=== PATIENT | male | born 1990 | race African-American/Black ===

== ENCOUNTER 2016-11-06 13:30 | Emergency (ER) | payer SELFPAY ==
--- NOTE | 2016-11-06 14:45 | ER Document Report ---
ED Neck/Back Problem - General Chief Complaint: Low Back Pain Stated Complaint: BACK PAIN Time seen by provider: 14:37 Mode of Arrival: Ambulatory Information source: Patient Notes: 26-year-old male presented to ED for pain in his lower back and abdomen after carrying boxes at work. He said someone hit one of the boxes and he bit over and then back up and started with severe pain in his back and down one leg. TRAVEL OUTSIDE OF THE [place] IN LAST 30 DAYS: No - HPI Patient complains to provider of: Lower back Onset: Yesterday Where: Work Onset: Sudden Timing: Still present Quality of pain: Sharp Severity: Moderate Pain Level: 4 Context: Lifting, Turning Recent injury: Possibly Associated symptoms: Radiation to leg, Lower back pain. denies: Constipation, Incontinence, Motor loss, Numbness/tingling, Unable to urinate Exacerbated by: Movement of trunk Relieved by: Nothing Similar symptoms previously: Yes Recently seen / treated by doctor: No - Related Data Allergies/Adverse Reactions: codeine [Codeine] Allergy (Mild, Verified 11/06/16 13:42) oxycodone HCl [From Percocet] Allergy (Mild, Verified 11/06/16 13:42) acetaminophen [From Vicodin] Allergy (Verified 11/06/16 13:42) hydrocodone bitartrate [From Vicodin] Allergy (Verified 11/06/16 13:42) morphine [Morphine] Allergy (Verified 11/06/16 13:42) Past Medical History - General Information source: Patient - Social History Smoking Status: Former Smoker Cigarette use (# per day): No Chew tobacco use (# tins/day): No Smoking Education Provided: No Lives with: Family Family History: Reviewed & Not Pertinent Patient has suicidal ideation: No Patient has homicidal ideation: No - Past Medical History Cardiac Medical History: Reports: None Pulmonary Medical History: Reports: Hx Asthma EENT Medical History: Reports: None Neurological Medical History: Reports: None Endocrine Medical History: Reports: None Renal/ Medical History: Reports: None Malignancy Medical History: Reports None Musculoskeltal Medical History: Reports Hx Musculoskeletal Trauma Skin Medical History: Reports None Psychiatric Medical History: Reports: None Traumatic Medical History: Reports: None Infectious Medical History: Reports: None Surgical Hx: Negative Past Surgical History: Reports: None - Immunizations Hx Diphtheria, Pertussis, Tetanus Vaccination: No - unknown Review of Systems - Review of Systems Constitutional: No symptoms reported EENT: No symptoms reported Cardiovascular: No symptoms reported Respiratory: No symptoms reported Gastrointestinal: No symptoms reported Genitourinary: No symptoms reported Male Genitourinary: No symptoms reported Musculoskeletal: Back pain - Lower back pain radiating down her left leg Skin: No symptoms reported Hematologic/Lymphatic: No symptoms reported Neurological/Psychological: No symptoms reported Physical Exam - Vital signs Vitals: Temp Pulse Resp BP Pulse Ox 98.3 F 84 18 139/85 H 99 11/06/16 13:43 11/06/16 13:43 11/06/16 13:43 11/06/16 13:43 11/06/16 13:43 Interpretation: Normal - General General appearance: Appears well, Alert - HEENT Head: Normocephalic, Atraumatic Eyes: Normal Pupils: PERRL - Respiratory Respiratory status: No respiratory distress Chest status: Nontender Breath sounds: Normal Chest palpation: Normal - Cardiovascular Rhythm: Regular Heart sounds: Normal auscultation Murmur: No - Abdominal Inspection: Normal Distension: No distension Bowel sounds: Normal Tenderness: Nontender Organomegaly: No organomegaly - Back Back: Normal, Tender - Lumbar area with sciatica. No: Deformity/step-off, CVA tenderness, Vertebra tenderness, Scars, Scoliosis, Wounds, Other - Extremities General upper extremity: Normal inspection, Nontender, Normal color, Normal ROM , Normal temperature General lower extremity: Normal inspection, Nontender, Normal color, Normal ROM , Normal temperature, Normal weight bearing. No: Deirdre's sign - Neurological Neuro grossly intact: Yes Cognition: Normal Orientation: AAOx4 Carson Coma Scale Eye Opening: Spontaneous Travis Coma Scale Verbal: Oriented Carson Coma Scale Motor: Obeys Commands Travis Coma Scale Total: 15 Speech: Normal Motor strength normal: LUE, RUE, LLE, RLE Sensory: Normal - Psychological Associated symptoms: Normal affect, Normal mood - Skin Skin Temperature: Warm Skin Moisture: Dry Skin Color: Normal Course - Vital Signs Vital signs: Temp Pulse Resp BP Pulse Ox 98.3 F 84 18 139/85 H 99 11/06/16 13:43 11/06/16 13:43 11/06/16 13:43 11/06/16 13:43 11/06/16 13:43 Discharge - Discharge Clinical Impression: Low back pain Qualifiers: Chronicity: acute Back pain laterality: bilateral Sciatica presence: with sciatica Sciatica laterality: sciatica of left side Qualified Code(s): M54.42 - Lumbago with sciatica, left side Condition: Stable Disposition: HOME, SELF-CARE Instructions: Stretching Exercises for the Back ([facility]), Exercise Program for the Shoulder ([facility]), Range of Motion Exercises ([facility]) Additional Instructions: LOW BACK PAIN: Three out of every four people will have an episode of disabling back pain during their lifetime. Most commonly the pain is due to straining of the muscles and ligaments in the low back. Usual treatment includes: (1) Rest on a firm surface. Avoid lying on your stomach. (2) Ice pack the painful area. After a few days, gentle heat may be used intermittently to relax the area, or ice packs can be continued. (3) Medication may be needed -- muscle relaxers and antiinflammatory medicines are commonly used. (4) As the back improves, exercises are prescribed to strengthen the back and abdominal muscles. Your doctor will advise you on the proper care for your back at each stage in your recovery. You may be better in a few days -- or healing may take several weeks. If new symptoms of a "herniated disc" (radiation of pain, numbness, or tingling down the back of the leg or weakness in the leg) occur, you should be re-examined. Further testing may be necessary. Anti-Inflammatory Medication You have received a prescription for an antiinflammatory agent. This is an excellent, safe drug for pain control. In addition, it has potent antiinflammatory effects which are beneficial, especially in the treatment of injuries, arthritis, or tendonitis. It's best to take this medicine with food. Persons with ulcer disease or allergy to aspirin should notify their physician of this before taking this drug. Take the medication exactly as prescribed. Don't take additional doses unless instructed to do so by your doctor. If you develop wheezing, shortness of breath, hives, faintness, stomach pain, vomiting, or dark black stools, return for re-evaluation at once. MUSCLE RELAXERS: Muscle relaxing medications are usually prescribed for acute muscle spasm or injury to the neck and back. They are often combined with antiinflammatory pain medication for increased relief. You may stop the muscle relaxer when the pain and stiffness have improved. Start the medication again if spasms recur. Muscle relaxers may cause drowsiness, especially with the first dose. Do not operate machinery or drive while under the effects of the medication. Most muscle relaxers last up to 24 hours. Do not combine the medication with alcohol. ICE PACKS: Apply ice packs frequently against the painful area. Many different schedules are recommended, such as "20 minutes on, 20 minutes off" or "one hour ice, two hours rest." If you need to work, you may need to go longer between ice treatments. You should plan to have the area ice packed AT LEAST one fourth of the time. The ice should be applied over the wrap, tape, or splint, or over a layer of cloth -- not directly against the skin. Some ice bags have a built-in cloth and can be put directly on the skin. WARM PACKS: After approximately two days, apply gentle heat (such as a heating pad or hot water bottle) for about 20 to 30 minutes about every two hours -- at least four times daily. Warmth and elevation will help you make a more rapid recovery , and will ease the pain considerably. Do not use HOT heat, and never apply heat for longer than 30 minutes. The continuous heat can invisibly damage skin and muscles -- even when no burn is seen on the surface. Damaged muscles can make you MORE sore. FOLLOW-UP CARE: If you have been referred to a physician for follow-up care, call the physician s office for an appointment as you were instructed or within the next two days. If you experience worsening or a significant change in your symptoms, notify the physician immediately or return to the Emergency Department at any time for re-evaluation. Prescriptions: Cyclobenzaprine HCl [Flexeril 10 mg Tablet] 10 mg PO TIDP PRN #15 tab PRN Reason: Naproxen 500 mg PO BID #20 tablet Forms: Return to Work, Elevated Blood Pressure Referrals: ARTIE CAN MD [ACTIVE STAFF] - Follow up as needed
[2016-11-06 14:48] VITALS: BP 155/78
== END 2016-11-06 15:00 | disposition home or self-care (01) ==
LOC: ER 13:30
DX: M54.42 Lumbago with sciatica, left side (principal); R10.9 Unspecified abdominal pain; X58.XXXA Exposure to other specified factors, initial encounter; Y93.89 Activity, other specified; Y99.0 Civilian activity done for income or pay; J45.909 Unspecified asthma, uncomplicated; Z88.5 Allergy status to narcotic agent; Z87.891 Personal history of nicotine dependence
CPT/HCPCS: 99283

== ENCOUNTER 2017-02-07 20:24 | Emergency (ER) | payer SELFPAY ==
[2017-02-07] MEDS ORDERED: BENZONATATE 100 MG CAPSULE PO ONE (22:53)
[2017-02-07] MEDS ORDERED: DEXAMETHASONE 4 MG TABLET PO ONE (22:53)
[2017-02-07] MEDS ORDERED: ONDANSETRON ODT 4 MG TAB (6 TAB/DSPK) PO PRN (22:53)
[2017-02-07] MEDS ORDERED: ALBUTEROL SULFATE HFA (90 MCG/PUFF) 8 GM MDI (1 MDI/ER DISP) IH PRN (22:54)
--- NOTE | 2017-02-07 22:56 | ER Document Report ---
ED General - General Chief Complaint: Abdominal Pain Stated Complaint: ABDOMINAL PAIN/DIFFICUTLY BREATHING Time Seen by Provider: 02/07/17 22:14 Notes: Patient is a 26-year-old male who presents with multiple complaints. Patient's primary complaint is that he has had persistent cough with intermittent posttussive emesis over the last 2 days. States he has been able to tolerate oral intake in between his episodes of posttussive emesis. His cough is nonproductive. The vomitus was nonbilious, the contents of what he had eaten. He has not tried anything to improve his symptoms. He has not noted that he worsens his symptoms. He has not seen a primary care doctor regarding today's concerns. He also notes a dull, burning epigastric abdominal discomfort after the episodes of vomiting but denies any focal abdominal pain at the time of my assessment. No prior history of abdominal surgeries. TRAVEL OUTSIDE OF THE [place] IN LAST 30 DAYS: No - Related Data Allergies/Adverse Reactions: codeine [Codeine] Allergy (Mild, Verified 02/07/17 21:02) oxycodone HCl [From Percocet] Allergy (Mild, Verified 02/07/17 21:02) acetaminophen [From Vicodin] Allergy (Verified 02/07/17 21:02) hydrocodone bitartrate [From Vicodin] Allergy (Verified 02/07/17 21:02) morphine [Morphine] Allergy (Verified 02/07/17 21:02) Past Medical History - General Information source: Patient - Social History Smoking Status: Never Smoker Frequency of alcohol use: Occasional Drug Abuse: None Family History: Reviewed & Not Pertinent Patient has suicidal ideation: No Patient has homicidal ideation: No Pulmonary Medical History: Reports: Hx Asthma Renal/ Medical History: Denies: Hx Peritoneal Dialysis Musculoskeltal Medical History: Reports Hx Musculoskeletal Trauma - Immunizations Hx Diphtheria, Pertussis, Tetanus Vaccination: No - unknown Review of Systems - Review of Systems Notes: Constitutional: Negative for fever. HENT: Negative for sore throat. Eyes: Negative for visual changes. Cardiovascular: Negative for chest pain. Respiratory: Positive for coughing Gastrointestinal: Positive for epigastric abdominal pain and vomiting Genitourinary: Negative for dysuria. Musculoskeletal: Negative for back pain. Skin: Negative for rash. Neurological: Negative for headaches, weakness or numbness. 10 point ROS negative except as marked above and in HPI. Physical Exam - Vital signs Vitals: Temp Pulse Resp BP Pulse Ox 98.3 F 84 18 145/79 H 100 02/07/17 21:02 02/07/17 21:02 02/07/17 21:02 02/07/17 21:02 02/07/17 21:02 Interpretation: Hypertensive Notes: PHYSICAL EXAMINATION: GENERAL: Well-appearing, well-nourished and in no acute distress. HEAD: Atraumatic, normocephalic. EYES: Pupils equal round and reactive to light, extraocular movements intact, sclera anicteric, conjunctiva are normal. ENT: nares patent, oropharynx clear without exudates. Moist mucous membranes. NECK: Normal range of motion, supple without lymphadenopathy LUNGS: Breath sounds clear to auscultation bilaterally and equal. No wheezes rales or rhonchi. HEART: Regular rate and rhythm without murmurs ABDOMEN: Soft, nontender, normoactive bowel sounds. No guarding, no rebound. No masses appreciated. EXTREMITIES: Normal range of motion, no pitting or edema. No cyanosis. NEUROLOGICAL: No focal neurological deficits. Moves all extremities spontaneously and on command. PSYCH: Normal mood, normal affect. SKIN: Warm, Dry, normal turgor, no rashes or lesions noted. Course - Re-evaluation Re-evalutation: 02/07/17 22:54 Patient presents with signs and symptoms most consistent with a bronchitis. He has had some posttussive emesis but has not had any difficulty tolerating oral intake in between these episodes of vomiting. Patient is overall extremely well in appearance, in absolutely no distress. Vitals within normal limits. Lung sounds clear on auscultation. He has no focal abdominal tenderness, rebound or guarding. Denies any abdominal pain on my exam or by history other than a mild soreness to the epigastrium after episodes of vomiting. Will obtain a chest x-ray to exclude pneumonia given the duration of his symptoms. However clinical history is most consistent with a likely bronchitis with associated posttussive emesis. If chest x-ray is negative, will plan for symptomatic treatment and outpatient management. Based on history and exam I do not suspect an acute pulmonary embolus, ACS, acute intra-abdominal pathologies including biliary peak disease, acute appendicitis, bowel perforation, bowel obstruction or mesenteric ischemia. 02/08/17 00:12 Chest x-ray is clear. At this time will discharge with return precautions and follow-up recommendations. Verbal discharge instructions given a the bedside and opportunity for questions given. Medication warnings reviewed. Patient is in agreement with this plan and has verbalized understanding of return precautions and the need for primary care follow-up in the next 24-72 hours. - Vital Signs Vital signs: Temp Pulse Resp BP Pulse Ox 98.3 F 84 18 136/76 H 97 02/07/17 21:04 02/08/17 00:24 02/08/17 00:24 02/08/17 00:24 02/08/17 00:24 - Diagnostic Test Radiology reviewed: Image reviewed, Reports reviewed Radiology results interpreted by me: 02/08/17 00:12 Chest x-ray: No acute infiltrate or pneumothorax Discharge - Discharge Clinical Impression: Bronchitis, Post-tussive emesis Condition: Good Disposition: HOME, SELF-CARE Additional Instructions: You were seen for symptoms most consistent with bronchitis. This can take up to 12 weeks to fully resolve. This is generally due to a viral infection. Please follow-up with your primary doctor in the next 2-3 days. Return if you develop worsening cough, vomiting, fever >100.4, pass out, begin coughing blood, or have any other symptoms that are concerning to you. Please use the medications prescribed today as directed. Prescriptions: Benzonatate [Tessalon Perles 100 mg Capsule] 100 mg PO Q8HP PRN #40 capsule PRN Reason: Forms: Return to Work
--- NOTE | 2017-02-07 23:16 | RADIOLOGY REPORT (SQ) ---
EXAM DESCRIPTION: CHEST SINGLE VIEW COMPLETED DATE/TIME: 02/07/2017 11:04 pm REASON FOR STUDY: cough X 3 weeks COMPARISON: 12/05/2009 EXAM PARAMETERS: NUMBER OF VIEWS: One view. TECHNIQUE: Single frontal radiographic view of the chest acquired. RADIATION DOSE: NA LIMITATIONS: None. FINDINGS: LUNGS AND PLEURA: No opacities, masses or pneumothorax. No pleural effusion. MEDIASTINUM AND HILAR STRUCTURES: No masses. Contour normal. HEART AND VASCULAR STRUCTURES: Heart normal in size. Normal vasculature. BONES: No acute findings. HARDWARE: None in the chest. OTHER: No other significant finding. IMPRESSION: NO ACUTE RADIOGRAPHIC FINDING IN THE CHEST. TECHNICAL DOCUMENTATION: JOB ID: [id number]
[2017-02-08 00:24] VITALS: BP 136/76
== END 2017-02-08 00:24 | disposition home or self-care (01) ==
LOC: ER 20:24
DX: J40 Bronchitis, not specified as acute or chronic (principal); R11.10 Vomiting, unspecified; R10.13 Epigastric pain; Z88.6 Allergy status to analgesic agent
CPT/HCPCS: 99284; 71010; J3490

== ENCOUNTER 2017-07-24 11:15 | Emergency (ER) | payer SELFPAY ==
--- NOTE | 2017-07-24 11:33 | ER Document Report ---
ED Medical Screen (RME) - General Chief Complaint: Chest Pain Stated Complaint: CHEST PAIN, VOMITING, ARM NUMBNESS Time Seen by Provider: 07/24/17 11:24 Notes: This 27-year-old male patient comes emergency room with multiple somatic complaints. He reports he has not felt well for a month and a half. Before after he eats he sees neon dots, his legs and arms will go numb. He states he has nausea and vomiting every time after he eats. He reports chest pain with blurred and speckled vision. 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 He states his legs will go numb and get a cold feeling in his stomach. He has intense ringing in the ears all the time. His left arm will go completely numb all the way down into the foot. He states he has lost 30 pounds in the last month, however he was seen here on weighing 157.7 kg, and today 5 months later he weighs 156.7 kg. I have greeted and performed a rapid initial assessment of this patient. A comprehensive ED assessment and evaluation of the patient, analysis of test results and completion of the medical decision making process will be conducted by additional ED providers. TRAVEL OUTSIDE OF THE [place] IN LAST 30 DAYS: No - Related Data Allergies/Adverse Reactions: codeine [Codeine] Allergy (Mild, Verified 07/24/17 11:16) oxycodone HCl [From Percocet] Allergy (Mild, Verified 07/24/17 11:16) acetaminophen [From Vicodin] Allergy (Verified 07/24/17 11:16) hydrocodone bitartrate [From Vicodin] Allergy (Verified 07/24/17 11:16) morphine [Morphine] Allergy (Verified 07/24/17 11:16) Past Medical History - Social History Frequency of alcohol use: None Drug Abuse: None Pulmonary Medical History: Reports: Hx Asthma Renal/ Medical History: Denies: Hx Peritoneal Dialysis Musculoskeltal Medical History: Reports Hx Musculoskeletal Trauma - Immunizations Hx Diphtheria, Pertussis, Tetanus Vaccination: No - unknown Physical Exam - Vital signs Vitals: Temp Pulse Resp BP Pulse Ox 97.7 F 96 16 150/86 H 98 07/24/17 11:22 07/24/17 11:22 07/24/17 11:22 07/24/17 11:22 07/24/17 11:22 Course - Vital Signs Vital signs: Temp Pulse Resp BP Pulse Ox 97.7 F 96 16 150/86 H 98 07/24/17 11:22 07/24/17 11:22 07/24/17 11:22 07/24/17 11:22 07/24/17 11:22
[2017-07-24 11:52] LABS: ABSOLUTE BASOPHILS # (AUTO) 0.1 10^3/uL (0.0-0.2); ABSOLUTE EOSINOPHILS # (AUTO) 0.1 10^3/uL (0.0-0.6); ABSOLUTE LYMPHOCYTES (AUTO) 2.5 10^3/uL (0.5-4.7); ABSOLUTE NEUT (AUTO) 7.2 10^3/uL (1.7-8.2); BASOPHILS % (AUTO) 0.7 % (0-2); EOSINOPHILS % (AUTO) 0.7 % (0-6); HEMATOCRIT 46.8 % (37.9-51.0); HEMOGLOBIN 15.2 g/dL (13.5-17.0); HGB HCT DIFFERENCE -1.2; LYMPHOCYTES % (AUTO) 22.9 % (13-45); MEAN CORPUSCULAR HEMOGLOBIN 26.6 pg (27.0-33.4); MEAN CORPUSCULAR HGB CONC 32.6 g/dL (32.0-36.0); MEAN CORPUSCULAR VOLUME 82 fl (80-97); RED BLOOD COUNT 5.72 10^6/uL (4.35-5.55); RED CELL DISTRIBUTION WIDTH 14.9 % (11.5-14.0); SEGMENTED NEUTROPHILS % (AUTO) 66.7 % (42-78); WHITE BLOOD COUNT 10.8 10^3/uL (4.0-10.5)
[2017-07-24 11:55] LABS: APPEARANCE,URINE CLEAR; BILIRUBIN,URINE NEGATIVE (NEGATIVE); GLUCOSE, URINE NEGATIVE (NEGATIVE); KETONES,URINE NEGATIVE (NEGATIVE); LEUKOCYTE ESTERASE,URINE NEGATIVE (NEGATIVE); NITRITE,URINE NEGATIVE (NEGATIVE); PROTEIN,URINE NEGATIVE (NEGATIVE); URINE SPECIFIC GRAVITY 1.019; UROBILINOGEN,URINE NEGATIVE mg/dL (<2.0)
[2017-07-24 12:11] LABS: ALANINE AMINOTRANSFERASE 36 U/L (21-72); ALBUMIN 4.4 g/dL (3.5-5.0); ALKALINE PHOSPHATASE 75 U/L (38-126); ANION GAP 10 (5-19); ASPARTATE AMINO TRANSFERASE 22 U/L (17-59); BILIRUBIN,DIRECT 0.2 mg/dL (0.0-0.4); BILIRUBIN,TOTAL 0.4 mg/dL (0.2-1.3); BLOOD UREA NITROGEN 15 mg/dL (7-20); CALCIUM 9.7 mg/dL (8.4-10.2); CARBON DIOXIDE 26 mmol/L (22-30); CHLORIDE 108 mmol/L (98-107); CREATININE RESULT 1.06 mg/dL (0.52-1.25); GLUCOSE 110 mg/dL (75-110); POTASSIUM 4.5 mmol/L (3.6-5.0); SODIUM 144.3 mmol/L (137-145); TOTAL PROTEIN 7.3 g/dL (6.3-8.2)
--- NOTE | 2017-07-24 13:20 | RADIOLOGY REPORT (SQ) ---
EXAM DESCRIPTION: CHEST PA/LAT COMPLETED DATE/TIME: 07/24/2017 12:46 pm REASON FOR STUDY: cp COMPARISON: Two-view chest 12/05/2009 EXAM PARAMETERS: NUMBER OF VIEWS: two views TECHNIQUE: Digital Frontal and Lateral radiographic views of the chest acquired. RADIATION DOSE: NA LIMITATIONS: none FINDINGS: LUNGS AND PLEURA: No opacities, masses or pneumothorax. No pleural effusion. MEDIASTINUM AND HILAR STRUCTURES: No masses or contour abnormalities. HEART AND VASCULAR STRUCTURES: Heart normal size. No evidence for failure. BONES: No acute findings. HARDWARE: None in the chest. OTHER: No other significant finding. IMPRESSION: NO SIGNIFICANT RADIOGRAPHIC FINDING IN THE CHEST. TECHNICAL DOCUMENTATION: JOB ID: [id number] [employer]- All Rights Reserved
[2017-07-24] MEDS ORDERED: ALBUTEROL SULFATE HFA (90 MCG/PUFF) 8 GM MDI (1 MDI/ER DISP) IH ONE (13:55)
--- NOTE | 2017-07-24 14:04 | ER Document Report ---
ED General - General Chief Complaint: Chest Pain Stated Complaint: CHEST PAIN, VOMITING, ARM NUMBNESS Time Seen by Provider: 07/24/17 11:24 TRAVEL OUTSIDE OF THE [place] IN LAST 30 DAYS: No - HPI Patient complains to provider of: Intermittent chest pain vomiting numbness dizziness Notes: Patient coming in for the above-stated symptoms ongoing for the last month. Patient states symptoms last longer today therefore came to the ER for further evaluation. Upon my evaluation patient is César had chest x-ray lab work performed patient states he is currently asymptomatic and feels the best he has a long time. Patient is overweight and mostly concerned that he may be diabetic. Denies any denies any sick contacts denies fevers chills nausea vomiting diarrhea. Denies any abdominal pain chest pain at this time. - Related Data Allergies/Adverse Reactions: codeine [Codeine] Allergy (Mild, Verified 07/24/17 11:16) oxycodone HCl [From Percocet] Allergy (Mild, Verified 07/24/17 11:16) acetaminophen [From Vicodin] Allergy (Verified 07/24/17 11:16) hydrocodone bitartrate [From Vicodin] Allergy (Verified 07/24/17 11:16) morphine [Morphine] Allergy (Verified 07/24/17 11:16) Past Medical History - Social History Smoking Status: Current Every Day Smoker Frequency of alcohol use: None Drug Abuse: None Family History: Reviewed & Not Pertinent Patient has suicidal ideation: No Patient has homicidal ideation: No Pulmonary Medical History: Reports: Hx Asthma Renal/ Medical History: Denies: Hx Peritoneal Dialysis Musculoskeltal Medical History: Reports Hx Musculoskeletal Trauma - Immunizations Hx Diphtheria, Pertussis, Tetanus Vaccination: No - unknown Review of Systems - Review of Systems Constitutional: No symptoms reported EENT: No symptoms reported Cardiovascular: No symptoms reported Respiratory: No symptoms reported Gastrointestinal: No symptoms reported Genitourinary: No symptoms reported Male Genitourinary: No symptoms reported Musculoskeletal: No symptoms reported Skin: No symptoms reported Hematologic/Lymphatic: No symptoms reported Neurological/Psychological: No symptoms reported -: Yes All other systems reviewed and negative Physical Exam - Vital signs Vitals: Temp Pulse Resp BP Pulse Ox 97.7 F 96 16 150/86 H 98 07/24/17 11:22 07/24/17 11:22 07/24/17 11:22 07/24/17 11:22 07/24/17 11:22 Interpretation: Normal - General General appearance: Appears well, Alert - HEENT Head: Normocephalic, Atraumatic Eyes: Normal Pupils: PERRL - Respiratory Respiratory status: No respiratory distress Chest status: Nontender Breath sounds: Normal Chest palpation: Normal - Cardiovascular Rhythm: Regular Heart sounds: Normal auscultation Murmur: No - Abdominal Inspection: Normal Distension: No distension Bowel sounds: Normal Tenderness: Nontender Organomegaly: No organomegaly - Back Back: Normal, Nontender - Extremities General upper extremity: Normal inspection, Nontender, Normal color, Normal ROM , Normal temperature General lower extremity: Normal inspection, Nontender, Normal color, Normal ROM , Normal temperature, Normal weight bearing. No: Deirdre's sign - Neurological Neuro grossly intact: Yes Cognition: Normal Orientation: AAOx4 Travis Coma Scale Eye Opening: Spontaneous Travis Coma Scale Verbal: Oriented Travis Coma Scale Motor: Obeys Commands Abie Coma Scale Total: 15 Speech: Normal Motor strength normal: LUE, RUE, LLE, RLE Sensory: Normal - Psychological Associated symptoms: Normal affect, Normal mood - Skin Skin Temperature: Warm Skin Moisture: Dry Skin Color: Normal Course - Re-evaluation Re-evalutation: 07/24/17 15:52 The patient has atypical chest pain as the patient's chest pain is not suggestive of pulmonary embolus, cardiac ischemia, aortic dissection, or other serious etiology. Given the extremely low risk of these diagnoses further testing and evaluation for these possibilities does not appear to be indicated at this time. The patient has been instructed to return if the symptoms worsen or change in any way. - Vital Signs Vital signs: Temp Pulse Resp BP Pulse Ox 97.8 F 79 18 124/65 97 07/24/17 14:16 07/24/17 14:16 07/24/17 12:03 07/24/17 14:16 07/24/17 14:16 - Laboratory Result Diagrams: 07/24/17 11:35 07/24/17 11:35 Laboratory results interpreted by me: 07/24/17 07/24/17 11:35 11:35 WBC 10.8 H RBC 5.72 H MCH 26.6 L RDW 14.9 H Chloride 108 H Discharge - Discharge Clinical Impression: Chest pain of unknown etiology, Feeling unwell, Inspiratory wheeze on examination Condition: Good Disposition: HOME, SELF-CARE Instructions: Chest Wall Pain ([facility]), Chest Pain of Unclear Cause ([facility]), Family Physicians / Practices, Stop Smoking ([facility]) Additional Instructions: Your laboratory studies and x-ray did not show any significant pathology. Your physical examination is otherwise normal and there is slight wheezing in her lungs which is more or less caused by her smoking. Please stop smoking return to ER symptoms worsen follow-up with your primary care provider. Prescriptions: Albuterol Sulfate [Proair HFA Inhalation Aerosol 8.5 gm MDI] 2 puff IH Q4H PRN # 1 mdi PRN Reason:
[2017-07-24 14:25] VITALS: BP 124/65
--- NOTE | 2017-07-24 22:54 | EKG REPORT ---
SEVERITY:- NORMAL ECG - SINUS RHYTHM : Confirmed by: Earl Degroot 24-Jul-2017 22:53:31
== END 2017-07-24 14:25 | disposition home or self-care (01) ==
LOC: ER 11:15
DX: R07.9 Chest pain, unspecified (principal); R06.2 Wheezing; R11.10 Vomiting, unspecified; R20.0 Anesthesia of skin; R42 Dizziness and giddiness; F17.200 Nicotine dependence, unspecified, uncomplicated
CPT/HCPCS: 93005; 99285; 36415; 84443; 85025; 80053; 81001; 71020; 93010; J3490

== ENCOUNTER 2017-09-28 05:29 | Emergency (ER) | payer SELFPAY ==
--- NOTE | 2017-09-28 06:52 | ER Document Report ---
ED General - General Time Seen by Provider: 09/28/17 06:51 Notes: 27-year-old male to the emergency department with multiple complaints. Patient states that over the last several months he has had increased nausea and vomiting. Has had pain in the right upper quadrant that radiates to his chest as well as right shoulder and back. Has been having vomiting this morning. Symptoms seem to be getting worse after he eats. Every now and then he has numbness of his fingers and toes and face. His thinks that maybe he has diabetes like she does but she has checked his blood sugar and it has been normal. Currently at this time he is having some pain in the right upper quadrant which is worse when palpating. Several episodes of vomiting this morning and states that he passed out. TRAVEL OUTSIDE OF THE [place] IN LAST 30 DAYS: No - HPI Onset: Just prior to arrival Onset/Duration: Gradual Quality of pain: Cramping Severity: Moderate Pain Level: 2 - Related Data Allergies/Adverse Reactions: codeine [Codeine] Allergy (Mild, Verified 07/24/17 11:16) oxycodone HCl [From Percocet] Allergy (Mild, Verified 07/24/17 11:16) acetaminophen [From Vicodin] Allergy (Verified 07/24/17 11:16) hydrocodone bitartrate [From Vicodin] Allergy (Verified 07/24/17 11:16) morphine [Morphine] Allergy (Verified 07/24/17 11:16) Past Medical History - General Information source: Patient - Social History Smoking Status: Current Every Day Smoker Cigarette use (# per day): Yes Frequency of alcohol use: None Drug Abuse: None Lives with: Spouse/Significant other Family History: Reviewed & Not Pertinent Pulmonary Medical History: Reports: Hx Asthma Renal/ Medical History: Denies: Hx Peritoneal Dialysis Musculoskeltal Medical History: Reports Hx Musculoskeletal Trauma - Immunizations Hx Diphtheria, Pertussis, Tetanus Vaccination: No - unknown Review of Systems - Review of Systems Constitutional: denies: Fever, Malaise, Weakness EENT: denies: Tearing, Double vision, Ear pain Cardiovascular: Chest pain, Syncope. denies: Palpitations, Heart racing Respiratory: denies: Cough, Hurts to breathe, Short of breath Gastrointestinal: Abdominal pain, Nausea, Vomiting. denies: Diarrhea Genitourinary: denies: Burning, Dysuria, Discharge Male Genitourinary: denies: Testicular pain, Penile discharge Musculoskeletal: Back pain. denies: Joint swelling, Muscle pain, Muscle stiffness Skin: denies: Change in color, Lumps, Rash Hematologic/Lymphatic: denies: Anemia, Blood clots, Easy bleeding, Easy bruising Neurological/Psychological: Numbness. denies: Confusion, Lost consciousness, Headaches Physical Exam - Vital signs Interpretation: Normal - General General appearance: Appears well, Alert - HEENT Head: Normocephalic, Atraumatic Eyes: Normal Pupils: PERRL - Respiratory Respiratory status: No respiratory distress Chest status: Nontender Breath sounds: Normal Chest palpation: Normal - Cardiovascular Rhythm: Regular Heart sounds: Normal auscultation Murmur: No - Abdominal Inspection: Normal Distension: No distension Bowel sounds: Normal Tenderness: Tender, Ramirez's sign Organomegaly: No organomegaly - Back Back: Normal, Nontender - Extremities General upper extremity: Normal inspection, Nontender, Normal color, Normal ROM , Normal temperature General lower extremity: Normal inspection, Nontender, Normal color, Normal ROM , Normal temperature, Normal weight bearing. No: Deirdre's sign - Neurological Neuro grossly intact: Yes Cognition: Normal Orientation: AAOx4 [place] Coma Scale Eye Opening: Spontaneous [place] Coma Scale Verbal: Oriented [place] Coma Scale Motor: Obeys Commands [place] Coma Scale Total: 15 Speech: Normal Motor strength normal: LUE, RUE, LLE, RLE Sensory: Normal - Psychological Associated symptoms: Normal affect, Normal mood - Skin Skin Temperature: Warm Skin Moisture: Dry Skin Color: Normal Course - Re-evaluation Re-evalutation: 09/28/17 07:08 Patient has tenderness to palpation in the right upper quadrant which reproduces his symptoms. Patient is fairly obese. With his symptoms of intermittent nausea vomiting worse after eating and right upper quadrant pain will order right upper quadrant ultrasound at this time, CBC, chemistry, urinalysis. Even though patient unlikely has a cardiac issue will order EKG and add a troponin as well. Lipase added as well. 09/28/17 09:08 All labs are unremarkable. Ultrasound unremarkable. Could still have dysfunctional gallbladder. We will give him follow-up information for general surgery to have further evaluation done on his gallbladder. At this time with normal labs, tolerating p.o. and in no acute distress will discharge. - Laboratory Result Diagrams: 09/28/17 06:40 02/21/18 06:40 Laboratory results interpreted by me: 09/28/17 09/28/17 06:40 06:40 MCH 26.5 L RDW 14.5 H Chloride 108 H - EKG Interpretation by Me EKG shows normal: Sinus rhythm, [place], Intervals, QRS Complexes, ST-T Waves Discharge - Discharge Clinical Impression: Right upper quadrant abdominal pain Condition: Good Disposition: HOME, SELF-CARE Instructions: Abdominal Pain ([facility]), Gallbladder Disease ([facility]) Additional Instructions: If your symptoms get worse over the next 24 hours or they are not getting better please return to the emergency department for further evaluation. We still do not know exactly what is wrong with you. This will require more testing. Please make an appointment with a residential program manager or general surgeon for further evaluation. Names of both specialists have been provided. Prescriptions: Ondansetron [Zofran Odt 4 mg Tablet] 1 - 2 tab PO Q4H PRN #15 tab.rapdis PRN Reason: For Nausea/Vomiting Referrals: ANDREW NOWAK MD [ACTIVE STAFF] - Follow up in 1 week EDINSON XIONG MD [ACTIVE STAFF] - Follow up in 1 week
[2017-09-28] MEDS ORDERED: ONDANSETRON 4 MG TAB.RAPDIS PO ONE (06:53)
[2017-09-28 07:22] LABS: HEMATOCRIT 44.2 % (37.9-51.0); HEMOGLOBIN 14.4 g/dL (13.5-17.0); MEAN CORPUSCULAR HEMOGLOBIN 26.5 pg (27.0-33.4); MEAN CORPUSCULAR HGB CONC 32.6 g/dL (32.0-36.0); MEAN CORPUSCULAR VOLUME 81 fl (80-97); PLATELET COUNT 209 10^3/uL (150-450); RED BLOOD COUNT 5.45 10^6/uL (4.35-5.55); RED CELL DISTRIBUTION WIDTH 14.5 % (11.5-14.0); WHITE BLOOD COUNT 9.1 10^3/uL (4.0-10.5)
[2017-09-28 07:24] LABS: ALANINE AMINOTRANSFERASE 30 U/L (21-72); ALBUMIN 4.2 g/dL (3.5-5.0); ALKALINE PHOSPHATASE 63 U/L (38-126); ANION GAP 11 (5-19); ASPARTATE AMINO TRANSFERASE 23 U/L (17-59); BILIRUBIN,DIRECT 0.1 mg/dL (0.0-0.4); BILIRUBIN,TOTAL 0.2 mg/dL (0.2-1.3); BLOOD UREA NITROGEN 20 mg/dL (7-20); CALCIUM 9.8 mg/dL (8.4-10.2); CARBON DIOXIDE 26 mmol/L (22-30); CHLORIDE 108 mmol/L (98-107); GLUCOSE 96 mg/dL (75-110); LIPASE 38.1 U/L (23-300); POTASSIUM 4.8 mmol/L (3.6-5.0); SODIUM 144.9 mmol/L (137-145); TOTAL PROTEIN 6.5 g/dL (6.3-8.2)
[2017-09-28 07:56] LABS: ABSOLUTE LYMPHOCYTES# (MANUAL) 1.8 10^3/uL (0.5-4.7); ABSOLUTE MONOCYTES # (MANUAL) 0.8 10^3/uL (0.1-1.4); ABSOLUTE NEUTROPHILS# (MANUAL) 6.5 10^3/uL (1.7-8.2); BASOPHILS % (MANUAL) 0 % (0-2); EOSINOPHILS % (MANUAL) 0 % (0-6); LYMPHOCYTES % (MANUAL) 20 % (13-45); MONOCYTES % (MANUAL) 9 % (3-13); SEGMENTED NEUTROPHILS % (MAN) 71 % (42-78); TOTAL CELLS COUNTED 100; TOXIC GRANULATION SLIGHT
[2017-09-28 07:57] LABS: PLATELET COMMENT ADEQUATE; RBC MORPHOLOGY COMMENT NORMO-CYTIC/CHROMIC
--- NOTE | 2017-09-28 07:57 | EKG REPORT ---
SEVERITY:- NORMAL ECG - SINUS RHYTHM : Confirmed by: Dario Simmons MD 28-Sep-2017 07:57:00
[2017-09-28 08:18] LABS: APPEARANCE,URINE CLEAR; BILIRUBIN,URINE NEGATIVE (NEGATIVE); COLOR,URINE YELLOW; GLUCOSE, URINE NEGATIVE (NEGATIVE); KETONES,URINE NEGATIVE (NEGATIVE); LEUKOCYTE ESTERASE,URINE NEGATIVE (NEGATIVE); NITRITE,URINE NEGATIVE (NEGATIVE); PROTEIN,URINE NEGATIVE (NEGATIVE); URINE SPECIFIC GRAVITY 1.018; UROBILINOGEN,URINE NEGATIVE mg/dL (<2.0)
--- NOTE | 2017-09-28 08:56 | RADIOLOGY REPORT (SQ) ---
EXAM DESCRIPTION: U/S ABDOMEN LIMITED W/O DOP COMPLETED DATE/TIME: 09/28/2017 8:38 am REASON FOR STUDY: ruq pain COMPARISON: None. TECHNIQUE: Dynamic and static grayscale images acquired of the abdomen and recorded on PACS. Additio nal selected color Doppler and spectral images recorded. LIMITATIONS: Midline bowel gas, body habitus FINDINGS: PANCREAS: Midline pancreas unremarkable LIVER: No masses. Echotexture normal. LIVER VASCULATURE: Normal directional flow of the main portal vein and hepatic veins. GALLBLADDER: No stones. Normal wall thickness. No pericholecystic fluid. ULTRASOUND-DETECTED BREWSTER'S SIGN: Negative. INTRAHEPATIC DUCTS AND COMMON DUCT: CBD and intrahepatic ducts normal caliber. No filling defects. D istal most common duct at the cole hepatis not well seen INFERIOR VENA CAVA: Normal flow. AORTA: No aneurysm. RIGHT KIDNEY: Normal size. Normal echogenicity. No solid or suspicious masses. No hydronephrosis. No calcifications. PERITONEAL AND RIGHT PLEURAL SPACE: No ascites or effusions. OTHER: No other significant findings. IMPRESSION: No gallstones, gallbladder wall thickening or pericholecystic fluid TECHNICAL DOCUMENTATION: JOB ID: [id number] [employer]- All Rights Reserved
[2017-09-28 09:16] VITALS: BP 125/78
== END 2017-09-28 09:34 | disposition home or self-care (01) ==
LOC: ER 05:29
DX: R10.11 Right upper quadrant pain (principal); R11.2 Nausea with vomiting, unspecified; R07.9 Chest pain, unspecified; R55 Syncope and collapse; R20.0 Anesthesia of skin; F17.210 Nicotine dependence, cigarettes, uncomplicated; J45.909 Unspecified asthma, uncomplicated; M54.9 Dorsalgia, unspecified; E66.9 Obesity, unspecified; Z68.42 Body mass index [BMI] 45.0-49.9, adult; Z88.5 Allergy status to narcotic agent
CPT/HCPCS: 93005; 99285; 36415; 83690; 83735; 85025; 80053; 81001; 84484; 83036; 76705; 93010; S0119

== ENCOUNTER 2017-10-10 05:30 | Emergency (ER) | payer SELFPAY ==
--- NOTE | 2017-10-10 05:53 | ER Document Report ---
ED Medical Screen (RME) - General Chief Complaint: Cough Stated Complaint: TROUBLE BREATHING Time Seen by Provider: 10/10/17 05:40 Mode of Arrival: Medic Information source: Patient TRAVEL OUTSIDE OF THE [place] IN LAST 30 DAYS: No - HPI Patient complains to provider of: Babak MONREAL CP Notes: 10/10/17 05:50 The patient is here with complaints of chest pain going into his back with upper abdominal pain wrapping around the right side of his abdomen started this morning. He is also got nausea and vomiting with this. Patient is been seen for this multiple times in the past. He had an unremarkable gallbladder ultrasound 2 weeks ago. Workups in the past have been unremarkable. States that he has been dealing with these symptoms intermittently for the past several months but it got worse this morning so he called EMS. An initial examination was made on the patient as part of the triage process, and it was determined a more comprehensive evaluation was necessary. Initial labs were ordered and patient was transferred to another provider in the ED who assumed care and finished evaluation and plan. 10/10/17 05:51 - Related Data Allergies/Adverse Reactions: codeine [Codeine] Allergy (Mild, Verified 10/10/17 05:33) oxycodone HCl [From Percocet] Allergy (Mild, Verified 10/10/17 05:33) acetaminophen [From Vicodin] Allergy (Verified 10/10/17 05:33) hydrocodone bitartrate [From Vicodin] Allergy (Verified 10/10/17 05:33) morphine [Morphine] Allergy (Verified 10/10/17 05:33) Past Medical History Pulmonary Medical History: Reports: Hx Asthma Renal/ Medical History: Denies: Hx Peritoneal Dialysis Musculoskeltal Medical History: Reports Hx Musculoskeletal Trauma - Immunizations Hx Diphtheria, Pertussis, Tetanus Vaccination: No - unknown
[2017-10-10] MEDS ORDERED: ONDANSETRON HCL INJ/PF 4 MG/2 ML SDV IV ONE (05:57)
[2017-10-10 06:38] LABS: ABSOLUTE EOSINOPHILS # (AUTO) 0.1 10^3/uL (0.0-0.6); ABSOLUTE LYMPHOCYTES (AUTO) 2.3 10^3/uL (0.5-4.7); ABSOLUTE MONOCYTES (AUTO) 0.9 10^3/uL (0.1-1.4); ABSOLUTE NEUT (AUTO) 6.2 10^3/uL (1.7-8.2); BASOPHILS % (AUTO) 0.3 % (0-2); EOSINOPHILS % (AUTO) 1.1 % (0-6); HEMATOCRIT 44.2 % (37.9-51.0); HEMOGLOBIN 14.3 g/dL (13.5-17.0); LYMPHOCYTES % (AUTO) 24.6 % (13-45); MEAN CORPUSCULAR HEMOGLOBIN 26.2 pg (27.0-33.4); MEAN CORPUSCULAR HGB CONC 32.3 g/dL (32.0-36.0); MEAN CORPUSCULAR VOLUME 81 fl (80-97); MONOCYTES % (AUTO) 9.2 % (3-13); PLATELET COUNT 208 10^3/uL (150-450); RED BLOOD COUNT 5.46 10^6/uL (4.35-5.55); RED CELL DISTRIBUTION WIDTH 14.6 % (11.5-14.0); SEGMENTED NEUTROPHILS % (AUTO) 64.8 % (42-78); TOTAL CELLS COUNTED % (AUTO) 100 %; WHITE BLOOD COUNT 9.5 10^3/uL (4.0-10.5)
[2017-10-10 06:46] LABS: ALANINE AMINOTRANSFERASE 40 U/L (21-72); ALKALINE PHOSPHATASE 65 U/L (38-126); ANION GAP 9 (5-19); ASPARTATE AMINO TRANSFERASE 21 U/L (17-59); BILIRUBIN,DIRECT 0.3 mg/dL (0.0-0.4); BILIRUBIN,TOTAL 0.3 mg/dL (0.2-1.3); BLOOD UREA NITROGEN 23 mg/dL (7-20); CALCIUM 9.5 mg/dL (8.4-10.2); CARBON DIOXIDE 24 mmol/L (22-30); CHLORIDE 109 mmol/L (98-107); GLUCOSE 100 mg/dL (75-110); LIPASE 38.2 U/L (23-300); POTASSIUM 4.6 mmol/L (3.6-5.0); SODIUM 142.2 mmol/L (137-145); TOTAL PROTEIN 6.8 g/dL (6.3-8.2)
--- NOTE | 2017-10-10 07:06 | ER Document Report ---
ED General - General Chief Complaint: Cough Stated Complaint: TROUBLE BREATHING Time Seen by Provider: 10/10/17 05:40 Mode of Arrival: Medic Information source: Patient Notes: 27-year-old male presents with complaints of right upper quadrant abdominal pain. Patient notes the symptoms have been ongoing now for months, was told that he has gallbladder issues. He notes the pain is intermittent woke him up this morning causing him to have shortness of breath and cough. Patient notes he has no fevers he has had no shortness of breath since TRAVEL OUTSIDE OF THE [place] IN LAST 30 DAYS: No - HPI Onset: Other Onset/Duration: Sudden, Intermittent Quality of pain: Cramping Severity: Mild Pain Level: 1 Associated symptoms: Shortness of breath, Other Exacerbated by: Food Relieved by: Denies Similar symptoms previously: Yes Recently seen / treated by doctor: Yes - Related Data Allergies/Adverse Reactions: codeine [Codeine] Allergy (Mild, Verified 10/10/17 05:33) oxycodone HCl [From Percocet] Allergy (Mild, Verified 10/10/17 05:33) acetaminophen [From Vicodin] Allergy (Verified 10/10/17 05:33) hydrocodone bitartrate [From Vicodin] Allergy (Verified 10/10/17 05:33) morphine [Morphine] Allergy (Verified 10/10/17 05:33) Past Medical History - General Information source: Patient - Social History Smoking Status: Never Smoker Cigarette use (# per day): No Chew tobacco use (# tins/day): No Smoking Education Provided: No Family History: Reviewed & Not Pertinent Patient has suicidal ideation: No Patient has homicidal ideation: No Pulmonary Medical History: Reports: Hx Asthma Renal/ Medical History: Denies: Hx Peritoneal Dialysis Musculoskeltal Medical History: Reports Hx Musculoskeletal Trauma - Immunizations Hx Diphtheria, Pertussis, Tetanus Vaccination: No - unknown Review of Systems - Review of Systems Notes: REVIEW OF SYSTEMS: CONSTITUTIONAL : Denies fever, chills, or sweats. Denies recent illness. EENT: Denies eye, ear, throat, or mouth pain or symptoms. Denies nasal or sinus congestion or discharge. Denies throat, tongue, or mouth swelling or difficulty swallowing. CARDIOVASCULAR: Denies chest pain. Denies palpitations or racing or irregular heart beat. Denies ankle edema. RESPIRATORY: Admits shortness of breath GASTROINTESTINAL: Admits to abdominal pain GENITOURINARY: Denies difficulty urinating, painful urination, burning, frequency, blood in urine, or discharge. MUSCULOSKELETAL: Denies back or neck pain or stiffness. Denies joint pain or swelling. SKIN: Denies rash, lesions or sores. HEMATOLOGIC : Denies easy bruising or bleeding. LYMPHATIC: Denies swollen, enlarged glands. NEUROLOGICAL: Denies confusion or altered mental status. Denies passing out or loss of consciousness. Denies dizziness or lightheadedness. Denies headache. Denies weakness or paralysis or loss of use of either side. Denies problems with gait or speech. Denies sensory loss, numbness, or tingling. Denies seizures. PSYCHIATRIC: Denies anxiety or stress. Denies depression, suicidal ideation, or homicidal ideation. ALL OTHER SYSTEMS REVIEWED AND NEGATIVE. Dictation was performed using [employer] voice recognition software PHYSICAL EXAMINATION: GENERAL: Obese male HEAD: Atraumatic, normocephalic. EYES: Pupils equal round and reactive to light, extraocular movements intact, sclera anicteric, conjunctiva are normal. ENT: Nares patent, oropharynx clear without exudates. Moist mucous membranes. NECK: Normal range of motion, supple without lymphadenopathy LUNGS: Breath sounds clear to auscultation bilaterally and equal. No wheezes rales or rhonchi. HEART: Regular rate and rhythm without murmurs ABDOMEN: Soft, tender in the right upper quadrant no rebound no guarding Musculoskeletal: Normal range of motion, no pitting or edema. No cyanosis. NEUROLOGICAL: Cranial nerves grossly intact. Normal speech, normal gait. Normal sensory, motor exams PSYCH: Normal mood, normal affect. SKIN: Warm, Dry, normal turgor, no rashes or lesions noted. Course - Re-evaluation Re-evalutation: 10/10/17 07:05 Patient's vital signs noted no significant abnormality, he is tender in the right upper quadrant, ultrasound has been ordered, x-ray was canceled since this is not respiratory in nature 10/10/17 08:25 u/s labs work was quite benign, pts vitals are stable, he looks well. Patient was offered tramadol, he states he does not want any narcotics, he would prefer naproxen, will discharge with pain control nausea control and follow-up with surgical After performing a Medical Screening Examination, I estimate there is LOW risk for ACUTE APPENDICITIS, BOWEL OBSTRUCTION, ACUTE CHOLECYSTITIS, PERFORATED DIVERTICULITIS, INCARCERATED HERNIA, PANCREATITIS, TESTICULAR TORSION or PERFORATED ULCER, thus I consider the discharge disposition reasonable. Also, there is no evidence or peritonitis, sepsis, or toxicity. I have reevaluated this patient multiple times and no significant life threatening changes are noted. The patient and I have discussed the diagnosis and risks, and we agree with discharging home with close follow-up with the understanding that symptoms and presentations can change. We also discussed returning to the Emergency Department immediately if new or worsening symptoms occur. We have discussed the symptoms which are most concerning (e.g., bloody stool, fever, changing or worsening pain, intractable vomiting - standard verbal up date) that necessitate immediate return. - Laboratory Result Diagrams: 10/10/17 06:20 10/10/17 06:20 Laboratory results interpreted by me: 10/10/17 10/10/17 06:20 06:20 MCH 26.2 L RDW 14.6 H Chloride 109 H BUN 23 H - Diagnostic Test Radiology reviewed: Image reviewed, Reports reviewed - no acute abnormality Discharge - Discharge Clinical Impression: RUQ pain Nausea & vomiting Qualifiers: Vomiting type: unspecified Vomiting Intractability: non-intractable Qualified Code(s): R11.2 - Nausea with vomiting, unspecified Condition: Stable Disposition: HOME, SELF-CARE Instructions: Abdominal Pain ([facility]) Prescriptions: Metoclopramide HCl [Reglan 10 mg Tablet] 1 - 2 tab PO ASDIR PRN #25 tablet PRN Reason: Naproxen 500 mg PO BID #20 tablet Referrals: EDINSON XIONG MD [ACTIVE STAFF] - Follow up tomorrow
--- NOTE | 2017-10-10 08:22 | RADIOLOGY REPORT (SQ) ---
EXAM DESCRIPTION: U/S ABDOMEN LIMITED W/O DOP COMPLETED DATE/TIME: 10/10/2017 7:26 am REASON FOR STUDY: RUQ pain COMPARISON: None. TECHNIQUE: Dynamic and static grayscale images acquired of the abdomen and recorded on PACS. Additio nal selected color Doppler and spectral images recorded. LIMITATIONS: None. FINDINGS: PANCREAS: No masses. Visualized pancreatic duct normal caliber. LIVER: No masses. Echotexture normal. LIVER VASCULATURE: Normal directional flow of the main portal vein and hepatic veins. GALLBLADDER: No stones. Normal wall thickness. No pericholecystic fluid. ULTRASOUND-DETECTED BREWSTER'S SIGN: Negative. INTRAHEPATIC DUCTS AND COMMON DUCT: CBD and intrahepatic ducts normal caliber. No filling defects. INFERIOR VENA CAVA: Normal flow. AORTA: No aneurysm. RIGHT KIDNEY: Normal size. Normal echogenicity. No solid or suspicious masses. No hydronephrosis. No calcifications. PERITONEAL AND RIGHT PLEURAL SPACE: No ascites or effusions. OTHER: No other significant findings. IMPRESSION: NORMAL RIGHT UPPER QUADRANT ULTRASOUND. 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
[2017-10-10 09:19] VITALS: BP 131/67
== END 2017-10-10 09:17 | disposition home or self-care (01) ==
LOC: ER 05:30
DX: R10.11 Right upper quadrant pain (principal); R11.2 Nausea with vomiting, unspecified; J45.909 Unspecified asthma, uncomplicated; R05 Cough; E66.9 Obesity, unspecified; Z88.5 Allergy status to narcotic agent; Z88.6 Allergy status to analgesic agent
CPT/HCPCS: 99284; 96374; 36415; 83690; 85025; 80053; 84484; 76705; J2405

== ENCOUNTER 2019-08-01 19:05 | Emergency (ER) | payer SELFPAY ==
--- NOTE | 2019-08-01 20:22 | ER Document Report ---
ED Medical Screen (RME) - General Chief Complaint: Knee Pain Stated Complaint: KNEE PAIN Time Seen by Provider: 08/01/19 20:17 Notes: Patient is a 29-year-old male who presents to the emergency department with a chief complaint of left lower extremity pain just distal of his knee. His pain started 2 days ago. He states that it is red and hot. Denies any fever. States that the longest car ride he has been on recently was only 2 hours. D enies any history of IV drug abuse. Denies any injury. Exam: Tender left lateral lower extremity just distal of knee. I have greeted and performed a rapid initial assessment of this patient. A com prehensive ED assessment and evaluation of the patient, analysis of test results and completion of medical decision making process will be conducted by an additional ED providers. TRAVEL OUTSIDE OF THE [place] IN LAST 30 DAYS: No - Related Data Allergies/Adverse Reactions: codeine [Codeine] Allergy (Mild, Verified 10/10/17 05:33) oxycodone HCl [From Percocet] Allergy (Mild, Verified 10/10/17 05:33) acetaminophen [From Vicodin] Allergy (Verified 10/10/17 05:33) hydrocodone bitartrate [From Vicodin] Allergy (Verified 10/10/17 05:33) morphine [Morphine] Allergy (Verified 10/10/17 05:33) Past Medical History Pulmonary Medical History: Reports: Hx Asthma Renal/ Medical History: Denies: Hx Peritoneal Dialysis Musculoskeltal Medical History: Reports Hx Musculoskeletal Trauma - Immunizations Hx Diphtheria, Pertussis, Tetanus Vaccination: No - unknown Physical Exam - Vital signs Vitals: Temp Pulse Resp BP Pulse Ox 98.0 F 116 H 20 135/65 H 98 08/01/19 19:08 08/01/19 19:08 08/01/19 19:08 08/01/19 19:08 08/01/19 19:08 Course - Vital Signs Vital signs: Temp Pulse Resp BP Pulse Ox 98.0 F 116 H 20 135/65 H 98 08/01/19 19:08 08/01/19 19:08 08/01/19 19:08 08/01/19 19:08 08/01/19 19:08
[2019-08-01 21:34] LABS: ABSOLUTE BASOPHILS # (AUTO) 0.1 10^3/uL (0.0-0.2); ABSOLUTE EOSINOPHILS # (AUTO) 0.1 10^3/uL (0.0-0.6); ABSOLUTE LYMPHOCYTES (AUTO) 2.6 10^3/uL (0.5-4.7); ABSOLUTE MONOCYTES (AUTO) 1.6 10^3/uL (0.1-1.4); ABSOLUTE NEUT (AUTO) 10.2 10^3/uL (1.7-8.2); BASOPHILS % (AUTO) 0.4 % (0-2); EOSINOPHILS % (AUTO) 0.4 % (0-6); HEMATOCRIT 42.7 % (37.9-51.0); HEMOGLOBIN 13.8 g/dL (13.5-17.0); LYMPHOCYTES % (AUTO) 17.8 % (13-45); MEAN CORPUSCULAR HEMOGLOBIN 26.1 pg (27.0-33.4); MEAN CORPUSCULAR HGB CONC 32.4 g/dL (32.0-36.0); MEAN CORPUSCULAR VOLUME 80 fl (80-97); MONOCYTES % (AUTO) 11.4 % (3-13); PLATELET COUNT 215 10^3/uL (150-450); RED BLOOD COUNT 5.31 10^6/uL (4.35-5.55); RED CELL DISTRIBUTION WIDTH 14.9 % (11.5-14.0); TOTAL CELLS COUNTED % (AUTO) 100 %; WHITE BLOOD COUNT 14.5 10^3/uL (4.0-10.5)
[2019-08-01] MEDS ORDERED: RINGERS SOLUTION,LACTATED 1,000 ML IV ONE (23:21)
[2019-08-01] MEDS ORDERED: DIPH/PERTUSS(ACELL)/TETANUS VAC/PF 0.5 ML SYR (>=10YO) IM ONE (23:35)
[2019-08-01] MEDS ORDERED: KETOROLAC TROMETHAMINE INJ/PF 30 MG/1 ML SDV IV ONE (23:39)
--- NOTE | 2019-08-01 23:45 | RADIOLOGY REPORT (SQ) ---
CLINICAL HISTORY: pain redness r/o FB COMPARISON: None. 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 Joint spaces are preserved. Soft tissues are unremarkable. IMPRESSION: No acute osseous findings.
[2019-08-01] MEDS ORDERED: AMOXICILLIN TR/POT CLAVULANATE 500-125 MG TAB PO ONE (23:49)
[2019-08-01] MEDS ORDERED: AMOXICILLIN TRIHYDRATE 500 MG CAPSULE PO ONE (23:52)
[2019-08-01] MEDS ORDERED: CLINDAMYCIN HCL 150 MG CAPSULE PO ONE (23:56)
[2019-08-02] MEDS ORDERED: CLINDAMYCIN HCL 150 MG CAPSULE PO ONE (02:15)
--- NOTE | 2019-08-02 02:43 | ER Document Report ---
ED General - General Chief Complaint: Knee Pain Stated Complaint: KNEE PAIN Time Seen by Provider: 08/01/19 20:17 TRAVEL OUTSIDE OF THE [place] IN LAST 30 DAYS: No - HPI Notes: 29M h/o obesity, no regular medical care, but no known h/o DM presents for pain swelling and redness/warmth to the frontal aspect of his LLE for ~2d at this time. 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 first noticed minimal pain and redness just distal to knee anterolaterally, now erythema is tracking more distally along anterior/lateral aspect of ceja. does have pain w/ rom at knee, no difficulty at hip/ankle. hasn't noted any drainage from any area, no popliteal masses. denies ivdu ever. doesn't believe hes had any skin breaks prior to these two jobs or penetrating injury anywhere. He states that it is red and hot. no prior personal/family h/o VTE or other RFs for VTE; no periods of immobility. doesn't know tetanus status. says he needs to est pcp here still. denies h/o MRSA or other resistant organism or otherwise any infections/abscesses - Related Data Allergies/Adverse Reactions: codeine [Codeine] Allergy (Mild, Verified 08/06/19 10:55) oxycodone HCl [From Percocet] Allergy (Mild, Verified 08/06/19 10:55) acetaminophen [From Vicodin] Allergy (Verified 08/06/19 10:55) hydrocodone bitartrate [From Vicodin] Allergy (Verified 08/06/19 10:55) morphine [Morphine] Allergy (Verified 08/06/19 10:55) Past Medical History - General Information source: Patient, Relative - Social History Smoking Status: Current Every Day Smoker Frequency of alcohol use: None Drug Abuse: None Occupation: giant tire repairer Family History: Reviewed & Not Pertinent Patient has suicidal ideation: No Patient has homicidal ideation: No Pulmonary Medical History: Reports: Hx Asthma Renal/ Medical History: Denies: Hx Peritoneal Dialysis Musculoskeletal Medical History: Reports Hx Musculoskeletal Trauma - Immunizations Hx Diphtheria, Pertussis, Tetanus Vaccination: No - unknown Review of Systems - Review of Systems Constitutional: No symptoms reported EENT: No symptoms reported Cardiovascular: No symptoms reported Respiratory: No symptoms reported Gastrointestinal: No symptoms reported Genitourinary: No symptoms reported Male Genitourinary: No symptoms reported Musculoskeletal: See HPI, Joint pain, Leg swelling. denies: Back pain, Joint swelling, Ankle swelling Skin: See HPI, Change in color. denies: Lumps Hematologic/Lymphatic: No symptoms reported Neurological/Psychological: No symptoms reported Physical Exam - Vital signs Vitals: Temp Pulse Resp BP Pulse Ox 98.0 F 116 H 20 135/65 H 98 08/01/19 19:08 08/01/19 19:08 08/01/19 19:08 08/01/19 19:08 08/01/19 19:08 Interpretation: Tachycardic. No: Hypotensive, Hypoxic, Febrile - General General appearance: Appears well, Alert In distress: None - obese, but also ++muscular - HEENT Head: Normocephalic, Atraumatic Eyes: Normal Conjunctiva: No: Injected, Purulent discharge Extraocular movements intact: Yes Pupils: PERRL Nerve palsy: No Visual banerjee normal: Yes Ears: Normal External canal: Normal Nasal: Normal Mouth/Lips: Normal Mucous membranes: Normal, Dry Pharynx: Normal Neck: Normal, Supple. No: Lymphadenopathy, Meningismus, Neck mass, Subcutaneous emphysema - Respiratory Respiratory status: No respiratory distress Chest status: Nontender Breath sounds: Normal Chest palpation: Normal - Cardiovascular Rhythm: Regular Heart sounds: Normal auscultation Murmur: No Pulses: Normal: Femoral, Popliteal, Posterior tibial, Dorsalis pedis Normal capillary refill: Yes - Abdominal Inspection: Normal, Obese. No: Wounds Distension: No distension Bowel sounds: Normal Tenderness: Nontender Organomegaly: No organomegaly - Back Back: Normal, Nontender - Extremities General upper extremity: Normal inspection, Nontender, Normal color, Normal ROM, Normal temperature General lower extremity: Other - see skin section below. - Neurological Neuro grossly intact: Yes Cognition: Normal Orientation: AAOx4 Travis Coma Scale Eye Opening: Spontaneous Travis Coma Scale Verbal: Oriented [place] Coma Scale Motor: Obeys Commands Travis Coma Scale Total: 15 Speech: Normal Motor strength normal: LUE, RUE, LLE, RLE Additional motor exam normals: Plantar flexion - ble strength 5/5 quad/ham, and for ankle dorsiplantar flexion. sensation to light touch in all distal sensory distributions ble also symmetric/intact.. No: Weakness Sensory: Normal - Psychological Associated symptoms: Normal affect, Normal mood - Skin Skin Temperature: Warm Skin Moisture: Dry Skin Color: Normal - otherwise skin wnl besides LLE Skin irregularity: Erythema, Tender indurated area. negative: Abscess, Laceration Location of irregularity: Extremities Character of irregularity: Confluent, Erythematous Irregularity with: Tenderness, Warmth, Induration, Well defined border, Other - erythema overlying tibial head anteriorly w/ some swelling/warmth, point of maximal induration just distal to patella anterior to ant proximal tibial. on POC soft tissue u/s no fluid collection c/w abscess no FB seen on us. +pain PROM L knee but not oop to exam and maximal ttp distal/not involving knee joint.. negative: Weeping Course - Re-evaluation Re-evalutation: tachycardia improved w/ ivf 1L, gave first dose bactrim/clinda here, choose both to get even broader anerobe coverage given exposure to feculent material. gave boostrix. on POC soft tissue u/s no fluid collection c/w abscess no FB seen on us. reviewed XR left knee no evidence fb/fx/ pt able to bear wt still comparetments remained soft. see additional d/c instrctions below for shared decision making performed w/ patient/ re: plan at d/c - Vital Signs Vital signs: Temp Pulse Resp BP Pulse Ox 98.0 F 90 16 126/75 H 98 08/02/19 03:27 08/02/19 03:27 08/02/19 03:27 08/02/19 03:27 08/02/19 03:27 - Laboratory Result Diagrams: 08/01/19 20:35 Laboratory results interpreted by me: 08/01/19 20:35 WBC 14.5 H MCH 26.1 L RDW 14.9 H Absolute Neuts (auto) 10.2 H Absolute Monos (auto) 1.6 H Discharge - Discharge Clinical Impression: Cellulitis Qualifiers: Site of cellulitis: extremity Site of cellulitis of extremity: lower extremity Laterality: left Qualified Code(s): L03.116 - Cellulitis of left lower limb Condition: Fair Disposition: HOME, SELF-CARE Additional Instructions: I have written 2 antibiotics for you to go home with please make sure he fill these first thing in the morning to start taking both. I have also supplied you with some skin markers by 2 days of antibiotics should definitely start to have seen improvement in the redness in your leg and pain in the area. If you start to have fevers over 100.4 nausea vomiting especially continued vomiting that makes you unable to hold down your antibiotics are severe pain with movement of the knee please return. Also watch for any spreading of the redness of your skin beyond the marked area within the next 2 days or if it does not start to improve at 2 days. Please take antibiotics at the same time every day continue to stay very hydrated make sure you are peeing well. Definitely you need to establish a primary care doctor in the area also please do not expose this area to any standing water especially any human or animal waste material. 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 Still even if you are improving I would like you to ensure that you are not getting any wet dirty materials in this area. I do not see any abscess or fluid collection to warrant incision and drainage but if you start to notice any swelling that suggest an abscess is forming you also need to be seen since it will need to be drained and antibiotics will not be alone sufficient. Prescriptions: Amoxicillin/Potassium Clav [Amox-Clav 875-125 mg Tablet] 1 each PO BID 7 Days #14 tablet Clindamycin HCl [Cleocin 150 mg Capsule] 450 mg PO TID 7 Days #63 capsule Forms: Return to Work
[2019-08-02 03:27] VITALS: BP 126/75
== END 2019-08-02 03:54 | disposition home or self-care (01) ==
LOC: ER 19:05
DX: L03.116 Cellulitis of left lower limb (principal); J45.909 Unspecified asthma, uncomplicated; E66.9 Obesity, unspecified; F17.200 Nicotine dependence, unspecified, uncomplicated; Z88.6 Allergy status to analgesic agent; Z88.5 Allergy status to narcotic agent; Z88.8 Allergy status to other drugs, medicaments and biological substances
CPT/HCPCS: 99283; 96361; 90471; 96374; 36415; 85025; 73560; 90715; J1885; J7120

== ENCOUNTER 2019-08-06 10:08 | Emergency (ER) | payer SELFPAY ==
[2019-08-06 10:17] VITALS: BP 128/105
--- NOTE | 2019-08-06 11:08 | ER Document Report ---
ED Medical Screen (RME) - General Chief Complaint: Leg Pain Stated Complaint: LEG PAIN Time Seen by Provider: 08/06/19 11:02 Mode of Arrival: Ambulatory Information source: Patient Notes: 29-year-old male morbidly obese with history of asthma presents to the emergency department with complaints of left leg pain. Reports he was treated for cellulitis on but never filled the prescription. Redness has decreased. But he reports he still has pain radiating from the lower leg up to his hip and flank and he has had fever vomiting diarrhea off and on since . Patient complains of left-sided flank pain. Also reports he has not voided today and only voided once yesterday. I have greeted and performed a rapid initial assessment of this patient. A comprehensive ED assessment and evaluation of the patient, analysis of test results and completion of the medical decision making process will be conducted by additional ED providers. TRAVEL OUTSIDE OF THE [place] IN LAST 30 DAYS: No - Related Data Allergies/Adverse Reactions: codeine [Codeine] Allergy (Mild, Verified 08/06/19 10:55) oxycodone HCl [From Percocet] Allergy (Mild, Verified 08/06/19 10:55) acetaminophen [From Vicodin] Allergy (Verified 08/06/19 10:55) hydrocodone bitartrate [From Vicodin] Allergy (Verified 08/06/19 10:55) morphine [Morphine] Allergy (Verified 08/06/19 10:55) Past Medical History Pulmonary Medical History: Reports: Hx Asthma Renal/ Medical History: Denies: Hx Peritoneal Dialysis Musculoskeltal Medical History: Reports Hx Musculoskeletal Trauma - Immunizations Hx Diphtheria, Pertussis, Tetanus Vaccination: No - unknown Physical Exam - Vital signs Vitals: Temp Pulse Resp BP Pulse Ox 98.0 F 99 16 128/105 H 95 08/06/19 10:16 08/06/19 10:16 08/06/19 10:16 08/06/19 10:16 08/06/19 10:16 Course - Vital Signs Vital signs: Temp Pulse Resp BP Pulse Ox 98.0 F 99 16 128/105 H 95 08/06/19 10:16 08/06/19 10:16 08/06/19 10:16 08/06/19 10:16 08/06/19 10:16
[2019-08-06 11:35] LABS: ABSOLUTE BASOPHILS # (AUTO) 0.1 10^3/uL (0.0-0.2); ABSOLUTE EOSINOPHILS # (AUTO) 0.1 10^3/uL (0.0-0.6); ABSOLUTE LYMPHOCYTES (AUTO) 2.2 10^3/uL (0.5-4.7); ABSOLUTE MONOCYTES (AUTO) 0.7 10^3/uL (0.1-1.4); BASOPHILS % (AUTO) 0.6 % (0-2); EOSINOPHILS % (AUTO) 0.9 % (0-6); HEMATOCRIT 43.7 % (37.9-51.0); HEMOGLOBIN 14.4 g/dL (13.5-17.0); LYMPHOCYTES % (AUTO) 27.4 % (13-45); MEAN CORPUSCULAR HEMOGLOBIN 26.6 pg (27.0-33.4); MEAN CORPUSCULAR VOLUME 80 fl (80-97); MONOCYTES % (AUTO) 8.9 % (3-13); PLATELET COUNT 264 10^3/uL (150-450); RED BLOOD COUNT 5.43 10^6/uL (4.35-5.55); RED CELL DISTRIBUTION WIDTH 14.6 % (11.5-14.0); SEGMENTED NEUTROPHILS % (AUTO) 62.2 % (42-78); TOTAL CELLS COUNTED % (AUTO) 100 %
[2019-08-06 11:47] LABS: APPEARANCE,URINE SLIGHTLY-CLOUDY; BILIRUBIN,URINE NEGATIVE (NEGATIVE); COLOR,URINE AMBER; GLUCOSE, URINE NEGATIVE (NEGATIVE); KETONES,URINE NEGATIVE (NEGATIVE); LEUKOCYTE ESTERASE,URINE SMALL (NEGATIVE); NITRITE,URINE NEGATIVE (NEGATIVE); PROTEIN,URINE 30 mg/dL (NEGATIVE); URINE SPECIFIC GRAVITY 1.029
[2019-08-06 11:50] LABS: ALBUMIN 4.5 g/dL (3.5-5.0); ALKALINE PHOSPHATASE 73 U/L (38-126); ANION GAP 14 (5-19); ASPARTATE AMINO TRANSFERASE 32 U/L (17-59); BILIRUBIN,DIRECT 0.2 mg/dL (0.0-0.4); BILIRUBIN,TOTAL 0.7 mg/dL (0.2-1.3); BLOOD UREA NITROGEN 15 mg/dL (7-20); CARBON DIOXIDE 27 mmol/L (22-30); CHLORIDE 102 mmol/L (98-107); GLUCOSE 106 mg/dL (75-110); POTASSIUM 4.3 mmol/L (3.6-5.0)
[2019-08-06] MEDS ORDERED: ACETAMINOPHEN 325 MG TABLET PO ONE (13:50)
[2019-08-06] MEDS ORDERED: IBUPROFEN 600 MG TABLET PO ONE (13:50)
--- NOTE | 2019-08-06 13:53 | ER Document Report ---
ED Extremity Problem, Lower - General Chief Complaint: Leg Pain Stated Complaint: LEG PAIN Time Seen by Provider: 08/06/19 11:02 Primary Care Provider: JB SÁNCHEZ MD [Primary Care Provider] - Follow up in 3-5 days Mode of Arrival: Ambulatory Notes: Patient is a 29-year-old male who presents to the emergency department with a chief complaint of left leg pain. He was here in the emergency department 5 days ago and he was diagnosed with cellulitis. He did not have his medications filled at that time, because he states that they were too expensive. Patient states that the swelling has not moved out of the area, but he continues to have pain. He also states that he has had chills and body aches. Denies any fever. TRAVEL OUTSIDE OF THE [place] IN LAST 30 DAYS: No - Related Data Allergies/Adverse Reactions: codeine [Codeine] Allergy (Mild, Verified 08/06/19 10:55) oxycodone HCl [From Percocet] Allergy (Mild, Verified 08/06/19 10:55) acetaminophen [From Vicodin] Allergy (Verified 08/06/19 10:55) hydrocodone bitartrate [From Vicodin] Allergy (Verified 08/06/19 10:55) morphine [Morphine] Allergy (Verified 08/06/19 10:55) Past Medical History - General Information source: Patient - Social History Smoking Status: Current Every Day Smoker Family History: Reviewed & Not Pertinent Patient has suicidal ideation: No Patient has homicidal ideation: No Pulmonary Medical History: Reports: Hx Asthma Renal/ Medical History: Denies: Hx Peritoneal Dialysis Musculoskeletal Medical History: Reports Hx Musculoskeletal Trauma - Immunizations Hx Diphtheria, Pertussis, Tetanus Vaccination: No - unknown Review of Systems - Review of Systems Notes: REVIEW OF SYSTEMS: CONSTITUTIONAL : See HPI. EENT: Denies eye, ear, throat, or mouth pain, discharge, or symptoms. Denies nasal or sinus congestion. CARDIOVASCULAR: Denies chest pain. RESPIRATORY: Denies shortness of breath, cough, congestion, difficulty breathing, or wheezing. GASTROINTESTINAL: Denies nausea, vomiting, and diarrhea. Denies abdominal pain. Denies constipation. GENITOURINARY: Denies difficulty urinating, burning, blood in urine, urgency or frequency. MUSCULOSKELETAL: Denies neck and back pain. Denies joint pain or swelling. SKIN: Denies rash, itchiness, or lesions HEMATOLOGIC : Denies easy bruising or bleeding. LYMPHATIC: Denies swollen, painful, enlarged glands. NEUROLOGICAL: Denies no numbness or tingling denies weakness. Denies headache. Denies altered mental status. Denies alteration in speech. PSYCHIATRIC: Denies stress, anxiety, alteration in sleep patterns, or depression. All other systems reviewed and negative. Physical Exam - Vital signs Vitals: Temp Pulse Resp BP Pulse Ox 98.0 F 99 16 128/105 H 95 08/06/19 10:16 08/06/19 10:16 08/06/19 10:16 08/06/19 10:16 08/06/19 10:16 - Notes Notes: PHYSICAL EXAMINATION: GENERAL: Appears obese, no acute distress. HEAD: Normocephalic, atraumatic. EYES: PERRL, conjunctiva normal, all extraocular movements intact, sclera nonicteric ENT: Moist mucous membranes. NECK: Supple, no noticeable swelling, redness, rash. Normal range of motion. LUNGS: Equal breath sounds bilaterally and clear to auscultation. No wheezes rales or rhonchi. CARDIOVASCULAR: S1-S2, regular rate, regular rhythm. Radial pulses 2+, normal. ABDOMEN: Normoactive bowel sounds. Soft, nontender, no guarding, no rebound tenderness, and no masses palpated. EXTREMITIES: Normal strength and range of motion, no pitting or edema. No cyanosis. NEUROLOGICAL: Moves all extremities upon command. Strength 5/5 in all extremities. PSYCH: Normal mood, normal affect. SKIN: Warm, dry. Erythema noted to left lower leg. Normal skin turgor. Course - Re-evaluation Re-evalutation: 08/06/19 16:01 Unofficial read of the venous Doppler study is negative. I did a bedside ultrasound and noted a pocket of fluid anterior to the patient's knee. I have a very low suspicion for septic joint. It appears to be an abscess. It was drained here in the emergency department. Culture was sent. He will be kept for continued Bactrim. I reeducated the patient on the importance of taking his antibiotics. I told him that the antibiotics he is being placed on are much more affordable than clindamycin. He is in agreement that he will get his antibiotics filled. [facility]. I have a very low suspicion for necrotizing fasciitis. Follow-up precautions were given. Verbal discharge instructions were given to the patient. They verbalized understanding. They are stable for discharge. - Vital Signs Vital signs: Temp Pulse Resp BP Pulse Ox 98.0 F 99 16 128/105 H 95 08/06/19 10:16 08/06/19 10:16 08/06/19 10:16 08/06/19 10:16 08/06/19 10:16 - Laboratory Result Diagrams: 08/06/19 11:22 08/06/19 11:22 Laboratory results interpreted by me: 08/06/19 08/06/19 11:22 11:22 MCH 26.6 L RDW 14.6 H Urine Protein 30 H Urine Urobilinogen 2.0 H Ur Leukocyte Esterase SMALL H Urine Ascorbic Acid 20 H Procedures - Incision and Drainage Left Anterior Knee Type: Simple Anesthetic type: 1% Lidocaine mL's of anesthetic: 5 Blade size: 11 I&D procedure: Betadine prep applied, Shurclens applied, Sterile dressing applied Incision Method: Incision made by scalpel Amount/type of drainage: 3 mls/blood and purulent drainage Discharge - Discharge Clinical Impression: Abscess Cellulitis Qualifiers: Site of cellulitis: extremity Site of cellulitis of extremity: lower extremity Laterality: right Qualified Code(s): L03.115 - Cellulitis of right lower limb Condition: Stable Disposition: HOME, SELF-CARE Instructions: Abscess ([facility]), Cephalexin ([facility]), Post Incision and Drainage, Trimethoprim-Sulfa ([facility]) Additional Instructions: You were seen for an abscess that required drainage. Please clean this area with soap and water twice daily and apply a topical antibiotic. Dress the area after each cleaning. Please return if you develop fever, vomiting, the pain at the site worsens, you notice spreading redness from the area, or you have any other symptoms that are concerning to you. The rash is likely due to infection of your skin. You need to take the antibiotics as prescribed. Do not stop even if the rash goes away until you have completed all the antibiotics. The area of redness was traced out here in the emergency department with a marking pen. You need to return to emergency department if the redness spreads outside of this area by more than 2 cm in any direction from the other day. You should also return if you develop fevers with temperature greater than 101, persistent vomiting, worsening pain, or have any other symptoms that are concerning to you. Prescriptions: Sulfamethoxazole/Trimethoprim [Bactrim Ds Tablet] 1 each PO BID 7 Days #14 tablet Cephalexin Monohydrate [Keflex 500 mg Capsule] 500 mg PO Q6H 7 Days #28 capsule Forms: Return to Work Referrals: JB SÁNCHEZ MD [Primary Care Provider] - Follow up in 3-5 days
[2019-08-06] MEDS ORDERED: LIDOCAINE 1% INJ-PF (10 MG/ML) 30 ML SDV INJ ONE (15:59)
[2019-08-06] MEDS ORDERED: CEPHALEXIN 500 MG CAPSULE PO ONE (16:05)
[2019-08-06] MEDS ORDERED: SULFAMETHOXAZOLE/TRIMETHOPRIM 800-160 MG TABLET PO ONE (16:05)
--- NOTE | 2019-08-06 16:20 | RADIOLOGY REPORT (SQ) ---
EXAM DESCRIPTION: VENOUS UNILATERAL LOWER COMPLETED DATE/TIME: 08/06/2019 4:11 pm REASON FOR STUDY: LLE pain/swelling COMPARISON: None. TECHNIQUE: Dynamic and static winters scale and color images acquired of the left leg venous system. Se lected spectral images acquired with additional compression and augmentation maneuvers. The contralat eral common femoral vein and saphenofemoral junction were also imaged. Images stored on PACS. LIMITATIONS: None. FINDINGS: COMMON FEMORAL: Normal phasicity, compression and augmentation. No visualized echogenic ma terial on winters scale. No defects on color images. FEMORAL: Normal compression and augmentation. No visualized echogenic material on winters scale. No defe cts on color images. POPLITEAL: Normal compression, augmentation. No visualized echogenic material on winters scale. No defec ts on color images. CALF VESSELS: Normal compression, augmentation. No visualized echogenic material on winters scale. No de fects on color images. GSV and SSV: Normal compression, augmentation. No visualized echogenic material on winters scale. No def ects on color images. ANY DEEP VENOUS INSUFFICIENCY: Not evaluated. ANY EVIDENCE OF POPLITEAL CYST: No. OTHER: No other significant finding. CONTRALATERAL COMMON FEMORAL VEIN AND SAPHENOFEMORAL JUNCTION: Normal phasicity, compression and augmentation. No visualized echogenic material on winters scale. No de fects on color images. IMPRESSION: NO EVIDENCE OF DVT OR SVT IN THE LEFT LEG. TECHNICAL DOCUMENTATION: JOB ID: [id number] [id number] 2010 [employer]- All Rights Reserved Reading location - IP/workstation name: [email or web address]
== END 2019-08-06 16:36 | disposition home or self-care (01) ==
LOC: ER 10:08
DX: L03.115 Cellulitis of right lower limb (principal); T50.906A Underdosing of unspecified drugs, medicaments and biological substances, initial encounter; Z91.120 Patient's intentional underdosing of medication regimen due to financial hardship; Z91.14 Patient's other noncompliance with medication regimen; L02.91 Cutaneous abscess, unspecified; R68.83 Chills (without fever); M79.605 Pain in left leg; F17.200 Nicotine dependence, unspecified, uncomplicated; J45.909 Unspecified asthma, uncomplicated; Z88.6 Allergy status to analgesic agent; Z88.5 Allergy status to narcotic agent; Z88.8 Allergy status to other drugs, medicaments and biological substances
CPT/HCPCS: 99284; 36415; 87070; 87205; 85025; 87075; 87077; 80053; 81001; 87186; 93971; 10060; J3490

== ENCOUNTER 2020-05-18 20:01 | Emergency (ER) | payer SELFPAY ==
[2020-05-18] MEDS ORDERED: CLINDAMYCIN HCL 150 MG CAPSULE PO ONE (21:13)
--- NOTE | 2020-05-18 21:14 | ER Document Report ---
ED Oral Problem - General Chief Complaint: Dental Injury Stated Complaint: TOOTH FELL OUT Time Seen by Provider: 05/18/20 21:10 Primary Care Provider: JB SÁNCHEZ MD [Primary Care Provider] - Follow up as needed Notes: CHIEF COMPLAINT: Dental injury 4 days ago HPI: 30-year-old male presenting for dental injury 4 days ago. Patient was working with rebar on a job site and pulled back and the rebar struck him in the mouth fracturing the right upper posterior molar. Patient states that he did pull the bits and pieces of the tooth out but has had increasing pain in the right face and jaw. No facial swelling no fever. ROS: See HPI - all other systems were reviewed and are otherwise negative Constitutional: no fever Eyes: no drainage, no blurred vision ENT: no runny nose, no sore throat, positive dental injury Integumentary: no rash Allergy: no hives MEDICATIONS: I agree with the patient medications as charted by the RN. ALLERGIES: I agree with the allergies as charted by the RN. PAST MEDICAL HISTORY/PAST SURGICAL HISTORY: Reviewed and agree as charted by RN. SOCIAL HISTORY: Reviewed and agree as charted by RN. FAMILY HISTORY: No significant familial comorbid conditions directly related to patient complaint EXAM: Reviewed vital signs as charted by RN. CONSTITUTIONAL: Alert and oriented and responds appropriately to questions. Well-appearing; well-nourished HEAD: Normocephalic; atraumatic EYES: Conjunctivae clear, sclerae non-icteric ENT: normal nose; no rhinorrhea; moist mucous membranes. There does appear to be fracture in the right upper second molar with significant portion of the tooth missing down to the gingiva. No facial swelling no trismus phonation is normal NECK: Supple without meningismus; non-tender; no cervical lymphadenopathy, no masses CARD: symmetric distal pulses RESP: Normal chest excursion without splinting or tachypnea ABD/GI: non-distended BACK: The back appears normal EXT: Normal ROM in all joints; no cyanosis, no effusions, no edema SKIN: Normal color for age and race; warm; dry; good turgor NEURO: Moves all extremities equally; Motor and sensory function intact PSYCH: The patient's mood and manner are appropriate. Grooming and personal hygiene are appropriate. MDM: 30-year-old male dental injury [address] on antibiotics. He does not want narcotics for pain will place him on ibuprofen follow-up with a dentist TRAVEL OUTSIDE OF THE [place] IN LAST 30 DAYS: No - Related Data Allergies/Adverse Reactions: codeine [Codeine] Allergy (Mild, Verified 08/06/19 10:55) oxycodone HCl [From Percocet] Allergy (Mild, Verified 08/06/19 10:55) acetaminophen [From Vicodin] Allergy (Verified 08/06/19 10:55) hydrocodone bitartrate [From Vicodin] Allergy (Verified 08/06/19 10:55) morphine [Morphine] Allergy (Verified 08/06/19 10:55) Past Medical History - Social History Smoking Status: Current Every Day Smoker Family History: Reviewed & Not Pertinent Pulmonary Medical History: Reports: Hx Asthma Renal/ Medical History: Denies: Hx Peritoneal Dialysis Musculoskeletal Medical History: Reports Hx Musculoskeletal Trauma - Immunizations Hx Diphtheria, Pertussis, Tetanus Vaccination: No - unknown Physical Exam - Vital signs Vitals: Temp Pulse Resp BP Pulse Ox 98.5 F 101 H 20 130/67 H 97 05/18/20 20:24 05/18/20 20:24 05/18/20 20:24 05/18/20 20:24 05/18/20 20:24 Course - Vital Signs Vital signs: Temp Pulse Resp BP Pulse Ox 98.5 F 101 H 20 130/67 H 97 05/18/20 20:24 05/18/20 20:24 05/18/20 20:24 05/18/20 20:24 05/18/20 20:24 Discharge - Discharge Clinical Impression: Dental injury Qualifiers: Encounter type: initial encounter Qualified Code(s): S09.93XA - Unspecified injury of face, initial encounter Condition: Stable Disposition: HOME, SELF-CARE Instructions: Toothache ([facility]), Clindamycin ([facility]) Additional Instructions: 1. Take the medications as prescribed, if you were written antibiotics make sure that you finish them. 2. You need to follow up with a dentist for definitive evaluation and care of your dental problems 3. return to the ED for any facial swelling, fever > 101, difficulty swallowing or opening the mouth. 4. You may attempt to follow up with the [facility] for further care as well as through the dental list provided. 5. you may want to consider a dental discount plan such as [email or web address] to help with costs of dental care as you do not have dental insurance Prescriptions: Clindamycin HCl [Cleocin 150 mg Capsule] 150 mg PO Q6 #40 capsule Ibuprofen [Motrin 800 mg Tablet] 800 mg PO Q8H PRN #30 tab PRN Reason: Referrals: JB SÁNCHEZ MD [Primary Care Provider] - Follow up as needed
[2020-05-18 21:49] VITALS: BP 149/91
== END 2020-05-18 21:45 | disposition home or self-care (01) ==
LOC: ER 20:01
DX: S09.93XA Unspecified injury of face, initial encounter (principal); W20.8XXA Other cause of strike by thrown, projected or falling object, initial encounter; Y93.89 Activity, other specified; Y99.0 Civilian activity done for income or pay; F17.200 Nicotine dependence, unspecified, uncomplicated; J45.909 Unspecified asthma, uncomplicated; Z88.6 Allergy status to analgesic agent; Z88.5 Allergy status to narcotic agent
CPT/HCPCS: 99283

== ENCOUNTER 2020-06-05 06:53 | Emergency (ER) | payer SELFPAY ==
--- NOTE | 2020-06-05 10:14 | RADIOLOGY REPORT (SQ) ---
EXAM DESCRIPTION: CHEST 2 VIEWS IMAGES COMPLETED DATE/TIME: 06/05/2020 9:53 am REASON FOR STUDY: cough COMPARISON: Chest films 07/24/2017 EXAM PARAMETERS: NUMBER OF VIEWS: two views TECHNIQUE: Digital Frontal and Lateral radiographic views of the chest acquired. RADIATION DOSE: NA LIMITATIONS: none FINDINGS: LUNGS AND PLEURA: No opacities, masses or pneumothorax. No pleural effusion. MEDIASTINUM AND HILAR STRUCTURES: No masses or contour abnormalities. HEART AND VASCULAR STRUCTURES: Heart normal size. No evidence for failure. BONES: No acute findings. HARDWARE: None in the chest. OTHER: Mild rightward tracheal deviation, likely from right lobe thyroid enlargement. IMPRESSION: No acute infiltrates. TECHNICAL DOCUMENTATION: JOB ID: [id number] 2010 [employer]- All Rights Reserved Reading location - IP/workstation name: [email or web address]
--- NOTE | 2020-06-05 10:35 | ER Document Report ---
ED Flu Like - General Chief Complaint: Flu Symptoms Stated Complaint: SHORTNESS OF BREATH,SORE THROAT,COUGH,CHILLS Time Seen by Provider: 06/05/20 09:30 Primary Care Provider: JB SÁNCHEZ MD [Primary Care Provider] - Follow up as needed Mode of Arrival: Ambulatory Information source: Patient TRAVEL OUTSIDE OF THE [place] IN LAST 30 DAYS: No - HPI Notes: Patient presents with cough cold congestion for 2 days. He states last night he had vomiting with some fevers and chills as well. He states he has been exposed to Covid in his family as well as with coworkers. He states had generalized body aches. They have been mild to moderate. They have been relatively constant. They are worse with exertion and better with rest. They do radiate throughout his body. - Related Data Allergies/Adverse Reactions: codeine [Codeine] Allergy (Mild, Verified 06/05/20 07:39) oxycodone HCl [From Percocet] Allergy (Mild, Verified 06/05/20 07:39) acetaminophen [From Vicodin] Allergy (Verified 06/05/20 07:39) hydrocodone bitartrate [From Vicodin] Allergy (Verified 06/05/20 07:39) morphine [Morphine] Allergy (Verified 06/05/20 07:39) Past Medical History - General Information source: Patient - Social History Smoking Status: Current Every Day Smoker Chew tobacco use (# tins/day): No Frequency of alcohol use: None Drug Abuse: None Family History: Reviewed & Not Pertinent Patient has homicidal ideation: No Pulmonary Medical History: Reports: Hx Asthma Renal/ Medical History: Denies: Hx Peritoneal Dialysis Musculoskeletal Medical History: Reports Hx Musculoskeletal Trauma - Immunizations Hx Diphtheria, Pertussis, Tetanus Vaccination: No - unknown Review of Systems - Review of Systems Constitutional: Chills, Fever, Malaise, Weakness Cardiovascular: denies: Chest pain, Palpitations Respiratory: Cough. denies: Short of breath -: Yes All other systems reviewed and negative Physical Exam - Vital signs Vitals: Temp Pulse Resp BP Pulse Ox 97.8 F 92 17 146/89 H 97 06/05/20 06:58 06/05/20 06:58 06/05/20 06:58 06/05/20 06:58 06/05/20 06:58 Interpretation: Normal - General General appearance: Appears well, Alert - HEENT Head: Normocephalic, Atraumatic Eyes: Normal Pupils: PERRL - Respiratory Respiratory status: No respiratory distress Chest status: Nontender Breath sounds: Normal Chest palpation: Normal - Cardiovascular Rhythm: Regular Heart sounds: Normal auscultation Murmur: No - Abdominal Inspection: Normal Distension: No distension Bowel sounds: Normal Tenderness: Nontender Organomegaly: No organomegaly - Back Back: Normal, Nontender - Extremities General upper extremity: Normal inspection, Nontender, Normal color, Normal ROM, Normal temperature General lower extremity: Normal inspection, Nontender, Normal color, Normal ROM, Normal temperature, Normal weight bearing. No: Deirdre's sign - Neurological Neuro grossly intact: Yes Cognition: Normal Orientation: AAOx4 Travis Coma Scale Eye Opening: Spontaneous Travis Coma Scale Verbal: Oriented Travis Coma Scale Motor: Obeys Commands Travis Coma Scale Total: 15 Speech: Normal Motor strength normal: LUE, RUE, LLE, RLE Sensory: Normal - Psychological Associated symptoms: Normal affect, Normal mood - Skin Skin Temperature: Warm Skin Moisture: Dry Skin Color: Normal Course - Re-evaluation Re-evalutation: 06/05/20 10:36 The patient was evaluated during a global COVID-19 pandemic and that diagnosis was suspected/considered upon their initial presentation. Their evaluation, treatment and testing was consistent with current guidelines for patients who present with complaints or symptoms and may be related to COVID-19. - Vital Signs Vital signs: Temp Pulse Resp BP Pulse Ox 97.8 F 92 17 146/89 H 97 06/05/20 07:40 06/05/20 06:58 06/05/20 06:58 06/05/20 06:58 06/05/20 06:58 - Diagnostic Test Radiology reviewed: Image reviewed, Reports reviewed Discharge - Discharge Clinical Impression: Person under investigation for COVID-19 URI (upper respiratory infection) Qualifiers: URI type: unspecified URI Qualified Code(s): J06.9 - Acute upper respiratory infection, unspecified Condition: Stable Disposition: HOME, SELF-CARE Instructions: COVID-19 Guidance for Persons Under Investigation, Upper Respiratory Illness ([facility]) Forms: Return to Work Referrals: JB SÁNCHEZ MD [Primary Care Provider] - Follow up as needed
[2020-06-05 10:49] VITALS: BP 131/88
== END 2020-06-05 10:52 | disposition home or self-care (01) ==
LOC: ER 06:53
DX: J06.9 Acute upper respiratory infection, unspecified (principal); R05 Cough; R11.10 Vomiting, unspecified; R50.9 Fever, unspecified; J02.9 Acute pharyngitis, unspecified; R53.81 Other malaise; R53.1 Weakness; F17.200 Nicotine dependence, unspecified, uncomplicated; J45.909 Unspecified asthma, uncomplicated; Z88.6 Allergy status to analgesic agent; Z88.5 Allergy status to narcotic agent; Z20.828 Contact with and (suspected) exposure to other viral communicable diseases
CPT/HCPCS: 99284; 87635; 71046; C9803